=== PATIENT | female | born 1970 | race Caucasian/White ===

== ENCOUNTER → 2017-06-01 | Outpatient (CLI) | payer OTHER | LOC: M.LAB 01:50 | DX: Z79.899 Other long term (current) drug therapy (principal) ==

== ENCOUNTER → 2020-07-23 | Outpatient (CLI) | payer OTHER | LOC: M.LAB 05:30 | PROVIDERS: ATTEND Anesthesiology | DX: E87.6 Hypokalemia (principal) ==